=== PATIENT | male | born 2000 | race Caucasian/White ===

== ENCOUNTER 2020-11-18 22:43 | Emergency (ER) | payer BC ==
[2020-11-18] MEDS ORDERED: Ketorolac 60 MG/2 ML SDV IM ONE (23:25)
--- NOTE | 2020-11-18 23:37 | EDM.PDOC ---
ED HPI GENERAL MEDICAL PROBLEM - General Chief Complaint: Upper Extremity Injury/Pain Stated Complaint: SHOULDER INJURY Time Seen by Provider: 11/18/20 22:55 Source of Information: Reports: Patient History Limitations: Reports: No Limitations - History of Present Illness INITIAL COMMENTS - FREE TEXT/NARRATIVE: states he slipped and fell onto ice and hurt his right shoulder. has pain in the area of the upper shoulder , limited ROM due to pain noted Onset: Today Onset Date: 11/18/20 Duration: Waxing/Waning Location: Reports: Upper Extremity, Right Quality: Reports: Ache, Dull Severity: Moderate Improves with: Reports: Cold Therapy Worsens with: Reports: Movement Context: Reports: Activity, Trauma (fell and hurt shoulder) - Related Data Allergies Allergy/AdvReac Type Severity Reaction Status Date / Time amoxicillin Allergy Cannot Verified 11/18/20 22:59 Remember azithromycin [From Zithromax] Allergy Cannot Verified 11/18/20 23:00 Remember Home Meds: Home Meds NK [No Known Home Meds] 11/18/20 [History] Past Medical History Respiratory History: Reports: Asthma, Other (See Below) Other Respiratory History: History of asthma when a young child. Musculoskeletal History: Reports: Other (See Below) Other Musculoskeletal History: History of right shoulder injury. Social & Family History - Alcohol Use Days Per Week of Alcohol Use: 1 Number of Drinks Per Day: 2 Total Drinks Per Week: 2 - Recreational Drug Use Recreational Drug Use: No Review of Systems - Review of Systems Review Of Systems: See Below Constitutional: Reports: No Symptoms Eyes: Reports: No Symptoms Ears: Reports: No Symptoms, Previous Injury Mouth/Throat: Reports: No Symptoms Respiratory: Reports: No Symptoms Cardiovascular: Reports: No Symptoms GI/Abdominal: Reports: No Symptoms Musculoskeletal: Reports: Shoulder Pain (right sided , in the upper pole of the shoulder) ED EXAM, GENERAL - Physical Exam Exam: See Below Exam Limited By: No Limitations General Appearance: Alert, WD/WN, No Apparent Distress Ears: Normal External Exam Nose: Normal Inspection Throat/Mouth: Normal Inspection Head: Atraumatic, Normocephalic Neck: Supple, Non-Tender Respiratory/Chest: No Respiratory Distress, Lungs Clear Cardiovascular: Normal Peripheral Pulses, Regular Rate, Rhythm Back Exam: Normal Inspection, Full Range of Motion Extremities: Arm Pain, Limited Range of Motion (right shoulder) Neurological: Alert, Oriented, CN II-XII Intact Psychiatric: Normal Affect Skin Exam: Warm, Dry, Intact Course - Orders/Labs/Meds Orders: Active Orders 24 hr Category Date Time Status Shoulder Comp Rt [CR] Stat Exams 11/18/20 23:00 Taken Meds: Medications Discontinued Medications Generic Name Dose Route Start Last Admin Trade Name Irish PRN Reason Stop Dose Admin Ketorolac Tromethamine 60 mg 11/18/20 23:25 Toradol IM 11/18/20 23:26 ONETIME ONE - Re-Assessments/Exams Free Text/Narrative Re-Assessment/Exam: 11/18/20 23:44 had Xray done Arm placed in sling Departure - Departure Time of Disposition: 11:50 Disposition: Home, Self-Care 01 Condition: Good Clinical Impression: Right shoulder injury, Right shoulder strain - Discharge Information *PRESCRIPTION DRUG MONITORING PROGRAM REVIEWED*: Not Applicable *COPY OF PRESCRIPTION DRUG MONITORING REPORT IN PATIENT DHRUV: Not Applicable Instructions: Shoulder Pain, [id number], How To Use a Sling, [id number] Referrals: PCP,None [Primary Care Provider] - Additional Instructions: 1) Keep arm in sling for at least 2 weeks 2) Use Ibuprofen 600mg 3 times a day for pain 3) If pain persists , see your doctor for further assessment after one week Sepsis Event Note (ED) - Evaluation Sepsis Screening Result: No Definite Risk - My Orders Last 24 Hours: My Active Orders 11/18/20 23:00 Shoulder Comp Rt [CR] Stat - Assessment/Plan Last 24 Hours: My Active Orders 11/18/20 23:00 Shoulder Comp Rt [CR] Stat
== END 2020-11-18 23:55 | disposition home or self-care (01) ==
LOC: FB.ED 22:43
DX: S46.911A Strain of unspecified muscle, fascia and tendon at shoulder and upper arm level, right arm, initial encounter (principal); J45.909 Unspecified asthma, uncomplicated; Z88.1 Allergy status to other antibiotic agents; Z88.0 Allergy status to penicillin; W01.0XXA Fall on same level from slipping, tripping and stumbling without subsequent striking against object, initial encounter
CPT/HCPCS: 73030-RT; 96372; 99283-25; J1885